=== PATIENT | male | born 1990 | race African-American/Black ===

== ENCOUNTER 2017-06-05 21:29 | Emergency (ER) | payer SELFPAY ==
[~2017-06-05] VITALS: Ht 182.9 cm; Wt 87.0 kg
[2017-06-05 21:40] VITALS: BP 138/78
== END 2017-06-05 23:33 | disposition left against medical advice (07) ==
LOC: ER 21:29
DX: Z53.21 Procedure and treatment not carried out due to patient leaving prior to being seen by health care provider (principal); F17.210 Nicotine dependence, cigarettes, uncomplicated; F12.10 Cannabis abuse, uncomplicated; Z86.718 Personal history of other venous thrombosis and embolism